=== PATIENT | female | born 1945 | race Caucasian/White ===

== ENCOUNTER 2016-08-16 17:29 | Inpatient (IN) ==
[2016-08-16] MEDS ORDERED: NON-FORMULARY MEDICATION 1 EACH EACH (Oxygen [Oxygen] 2 L) NS PRN (18:42)
[2016-08-16] MEDS ORDERED: Nystatin POWDER 30 GM BOTTLE TP PRN (18:42)
[2016-08-16] MEDS ORDERED: *HR* Dextrose 50 % in Water (Syg) 50 ML SYRINGE IVP PRN (18:51)
[2016-08-16] MEDS ORDERED: Dextrose Gel 15 GM PO PRN ×2 (18:51)
[2016-08-16] MEDS ORDERED: D5% in Water 1,000 ML IVC PRN (18:51)
[2016-08-16] MEDS ORDERED: CLOBETASOL PROPIONATE 0.05% TP SCH (21:00)
[2016-08-16] MEDS ORDERED: APPL TP SCH (21:00)
[2016-08-16] MEDS ORDERED: Bumetanide 1 MG TABLET PO SCH (21:00)
[2016-08-17] MEDS: *HR* HYDROcodone/Acet 5/325 mg TABLET PO PRN ×2 (01:12→21:22)
[2016-08-17 05:34] LABS: INR 1.5; Prothrombin Time 15.9 Seconds (9.4-12.1)
[2016-08-17 05:37] LABS: Activated Partial Thrombo Time 34.6 Seconds (26.0-36.0); Basophils % 0.4 %; Eosinophils # 0.3 K/mcL (0.0-0.6); Eosinophils % 5.2 %; Hematocrit 27.7 % (35.3-44.9); Immature Granulocytes % 0.4 % (0-4); Lymphocytes # 0.8 K/mcL (0.6-4.6); Lymphocytes % 15.1 %; Mean Corpuscular HGB Conc 32.5 g/dL (31.6-35.5); Mean Corpuscular Hemoglobin 29.7 pg (28.0-33.3); Mean Corpuscular Volume 91.4 fL (83.0-100.0); Mean Platelet Volume 11.1 fL (9.4-12.4); Monocytes # 0.7 K/mcL (0.0-1.3); Neutrophils # 3.7 K/mcL (1.6-8.9); Platelet Count 152 K/mcL (140-400); Red Blood Count 3.03 M/mcL (3.82-4.97); Red Cell Distribution Width 17.1 % (11.5-14.5); Segmented Neutrophils % 65.9 %
[2016-08-17 05:43] LABS: Calcium 8.8 mg/dL (8.6-10.8); Potassium 3.6 mEq/L (3.5-4.5)
[2016-08-17] MEDS: Insulin LISPRO 300 UNITS/3 ML VIAL SQ SCH ×3 (07:26→17:45)
[2016-08-17] MEDS: Aspirin Enteric Coated 81 MG Tablet PO SCH (11:35)
[2016-08-17] MEDS: Diltiazem CD (24hr) 180 MG CAPSULE PO SCH (11:35)
[2016-08-17] MEDS: Metoprolol XL (24 HR) Succ 50 MG TAB.ER.24H PO SCH (11:35)
[2016-08-17] MEDS: Bumetanide 1 MG TABLET PO SCH ×2 (11:35→17:45)
[2016-08-17] MEDS: TROSPIUM CHLORIDE 60 MG PO SCH (11:44)
--- NOTE | 2016-08-17 12:14 | Internal Med History&Physical ---
Date of Encounter: 08/17/16 Time of Encounter: 11:40 Assessment and Plan (1) Atrial fibrillation Current visit: No Status: Chronic We will continue aspirin for now. Qualifiers: Atrial fibrillation type: paroxysmal Qualified Code(s): I48.0 - Paroxysmal atrial fibrillation (2) Anemia Current visit: No Status: Chronic Anemia testing during her [facility] stay showed iron 36, transferrin saturation 11%, transferrin 233, ferritin 74, B12 184, and folate 10.6. I will start ferrous sulfate with vitamin C. Qualifiers: Anemia type: unspecified type Qualified Code(s): D64.9 - Anemia, unspecified (3) Diastolic CHF Current visit: No Status: Acute Her BNP peptide is significantly more elevated today compared to a few days ago. Will add isosorbide and Lanoxin. Continue Bumex, Toprol, and Cardizem Qualifiers: Congestive heart failure chronicity: chronic Qualified Code(s): I50.32 - Chronic diastolic (congestive) heart failure (4) CKD (chronic kidney disease) stage 4, GFR 15-29 ml/min Current visit: No Status: Chronic (5) CAD (coronary artery disease) Current visit: No Status: Chronic Will add isosorbide and continue Cardizem, Toprol and aspirin. Qualifiers: Coronary Disease-Associated Artery/Lesion type: [place] artery [place] vs. transplanted heart: [place] heart Associated angina: without angina Qualified Code(s): I25.10 - Atherosclerotic heart disease of [place] coronary artery without angina pectoris (6) Chronic kidney disease, stage IV (severe) Current visit: No Status: Acute As per global marketing operations manager. (7) Edema Current visit: Yes Status: Chronic Will order d-dimer to screen for DVT. Qualifiers: Edema type: unspecified Qualified Code(s): R60.9 - Edema, unspecified (8) Diabetes Current visit: No Status: Chronic Qualifiers: Diabetes mellitus type: type 2 Diabetes mellitus complication status: with kidney complications Diabetes mellitus complication detail: with chronic kidney disease Diabetes mellitus half-way insulin use: without half-way use Chronic kidney disease stage: stage 4 (severe) Qualified Code(s): E11.22 - Type 2 diabetes mellitus with diabetic chronic kidney disease; N18.4 - Chronic kidney disease, stage 4 (severe) Internal Medicine - H&P: HPI Chief complaint: Heart failure Admitted From: Hospital to Hospital Transfer Plans for Post Hospital Care: Home History of present illness: Ms. Vera is a 71 year old female who was hospitalized at [facility] August 12- for leg edema felt to be secondary to exacerbation of diastolic heart failure. She was stabilized but it was felt she would benefit from ongoing rehabilitation therapy prior to returning to independent living. She was admitted to [facility] swing bed. Cardiovascular history significant for hypertension and chronic atrial fibrillation. She was told she had an [place] January 2016 during a [place] hospitalization. She had a heart catheter on multiple occasions most recently 2015. She had 2 stents placed in 1995 but has been told the stents are occluded. She had 1 vessel CABG in 1991. She denies DVT or pulmonary embolus. She had Regadenoson stress test July 2015 which showed LVEF of 69% with no EKG or perfusion changes suggestive of ischemia or infarct. An echocardiogram December 2015 showed LVEF 55% with normal LV systolic function and indeterminate diastolic function due to chronic atrial fibrillation. She had severe TR, moderate MR, and elevated estimated RVSP of 65 mmHg. There was biatrial enlargement with left atrial size recorded at 5.1 cm. She took Coumadin until an episode of GI bleed in 2015. She has not been restarted on OAC. Past Med Surg Social Fam HX - Past Medical History Medical history: arthritis, atrial fibrillation, CHF, diabetes, GERD, hypertension, renal disease Psychiatric history: depression - Past Surgical History Surgical History: cholecystectomy, coronary bypass (CABG), other - Social History Smoking Status: Former smoker Packs per day: 1 Smokeless Tobacco Status: No Alcohol use: none Drug use: none - Family History Mother History Unknown: Yes Adopted: [place]: Meeta Age: 88 Family Member Ethnicity: Non- Living Status: Age at : 88 Cause of : CHF Hx Family Cardiac Disorders: Yes Hx Family Respiratory Disorders: No Hx Family Cancer: Yes Hx Family GI Disorders: No Hx Family Genitourinary Disorders: No Hx Family Endocrine Disorder: Yes Hx Family Musculoskeletal Disorders: Yes Hx Family Neuromuscular Disorders: No Hx Family Neurologic Disorders: No Hx Family HEENT Disorders: No Hx Family Autoimmune Disorders: No Hx Family Reproductive Disorders: Yes Hx Family Psychosocial Disorders: No Hx Family Medical Disorders: No Father Hx Family Cardiac Disorders: Yes Hx Family Cancer: Yes (stomach) Internal Medicine - H&P: Meds Cholecalciferol (D-3) [Vitamin D] 5,000 unit PO DAILY 09/26/15 [History] Diltiazem HCl [Diltiazem ER] 180 mg PO DAILY 09/26/15 [History] Hydrocodone/Acetaminophen [[place] 5-325 Tablet] 1 tab PO BID PRN 09/26/15 [ History] Metoprolol Succinate 100 mg PO DAILY 09/26/15 [History] Omeprazole [PriLOSEC] 40 mg PO DAILY 09/26/15 [History] Paroxetine HCl [Paroxetine] 40 mg PO DAILY 09/26/15 [History] Trospium Chloride [Trospium Chloride ER] 60 mg PO DAILY 09/26/15 [History] Clobetasol Propionate 0.05% [Temovate] 1 appl TP BID 01/19/16 [History] Clobetasol Propionate [Clobex] 1 appl TP 3XW 01/19/16 [History] Docusate [Colace] 100 mg PO DAILY PRN 01/19/16 [History] Nystatin POWDER [Nystop] 1 appl TP BID PRN 01/19/16 [History] Aspirin Enteric Coated [Aspirin EC] 81 mg PO DAILY 05/22/16 [History] Oxygen 2 l NS AD PRN 05/22/16 [History] Bumetanide [Bumex] 2 mg PO BID #60 tablet 05/24/16 [Rx] Potassium Chloride 10 meq PO DAILY #30 tab.er.prt 05/24/16 [Rx] HYDROcodone/Acet 5/325 mg [[place] 5-325 mg] 1 tab PO BID PRN #10 tablet 08/16/16 [Rx] Allergies NSAIDS (Non-Steroidal Anti-Inflamma Allergy (Verified 08/12/16 14:48) Hives Penicillins [PCN] Allergy (Verified 08/12/16 14:48) Hives Iodinated Contrast- Oral and IV Dye Adverse Reaction (Verified 08/12/16 14:48) See Comments All Systems PM: A 10-system review of systems was performed and is negative for pertinent findings except as documented above in the HPI. Review of systems: Gen.: She states her weight has been stable the past few months. She states she had gastric bypass surgery in 1999 with weight 336 at time of surgery. Her weight has fluctuated based on fluid retention recently. Cardiovascular: As per history of present illness Respiratory: She smoked from age [age] up to 1 pack per day. She has oxygen for prn use at home. She denies testing for TEZ. She denies COPD/emphysema. GI: She has had cholecystectomy. She has GERD but denies disorders of her liver or exocrine pancreas : She has CKD stage IV and follows with a [facility] global marketing operations manager Endocrine: She was diagnosed with borderline diabetes in 1984 and DM 2 shortly afterward. She denies thyroid disease or hyperlipidemia Hematology/oncology: She denies blood disorders cancers or anemia Psychiatric: She has anxiety and depression but denies other mental health issues [place] skeletal: She has DJD and gout. She states she has had 2 back surgeries with riley placement done at her last surgery. - Constitutional Vitals: Temp Pulse Resp BP Pulse Ox 98.3 F 68 18 142/71 96 08/17/16 06:45 08/17/16 10:15 08/17/16 10:15 08/17/16 10:15 08/17/16 10:15 Exam: Gen.: She is a well-developed overweight female sitting on the side of at who appears in no severe distress. HEENT: Head is atraumatic and normocephalic. Eyes: EOMI. There is no scleral icterus. Mouth: Mucosa is moist. Neck: Supple and nontender. There is no thyromegaly or adenopathy noted. Heart: Irregularly irregular. Lungs: No wheezes or crackles heard. Abdomen: She has a large pannus. It is nontender to palpation. Exam is limited because she is in the seated position. Extremities: She has 1-2+ pitting edema as well as woody edema of her legs. The right leg lower appears larger than the left. Dorsalis pedis and posterior tibial pulses are not palpated. Neurologic: Mental status: She is talkative and a good historian. Cranial nerves: Smile is symmetric. Forehead wrinkles bilaterally. Tongue protrudes midline. EOMI. Motor: There is no pronator drift. Cerebellar: Finger to nose is intact bilaterally. Skin: Warm and dry Internal Med - H&P Results - Labs CBC & Chem 7: 08/17/16 05:16 08/17/16 05:16 Labs: Short CBC 08/17/16 Range/Units 05:16 WBC 5.6 (4.3-11.1) K/mcL Hgb 9.0 L (11.5-15.4) g/dL Hct 27.7 L (35.3-44.9) % Plt Count 152 (140-400) K/mcL Neutrophils # 3.7 (1.6-8.9) K/mcL BMP 08/17/16 05:16 Sodium 142 Potassium 3.6 Chloride 103 Carbon Dioxide 25 BUN 40 H Creatinine 1.97 H Glucose 111 H Calcium 8.8
[2016-08-17] MEDS ORDERED: *HR* Enoxaparin 30 MG/0.3 ML SYRINGE SQ SCH (14:06)
[2016-08-17] MEDS: *HR* Enoxaparin 100 MG/ML SYRINGE SQ SCH (14:25)
[2016-08-17] MEDS: *HR* Digoxin 0.125 MG TABLET PO SCH (14:25)
[2016-08-17] MEDS: Isosorbide MONOnitrate (24 HR) 30 MG TAB.ER.24H PO SCH (14:25)
[2016-08-18] MEDS: *HR* Enoxaparin 100 MG/ML SYRINGE SQ SCH (06:39)
[2016-08-18] MEDS: Ascorbic Acid 500 MG TABLET PO SCH (06:39)
[2016-08-18] MEDS: Insulin LISPRO 300 UNITS/3 ML VIAL SQ SCH ×3 (07:27→16:38)
[2016-08-18] MEDS: Bumetanide 1 MG TABLET PO SCH ×2 (09:36→16:45)
[2016-08-18] MEDS: Metoprolol XL (24 HR) Succ 50 MG TAB.ER.24H PO SCH (09:36)
[2016-08-18] MEDS: Isosorbide MONOnitrate (24 HR) 30 MG TAB.ER.24H PO SCH (09:37)
[2016-08-18] MEDS: Aspirin Enteric Coated 81 MG Tablet PO SCH (09:37)
[2016-08-18] MEDS: Diltiazem CD (24hr) 180 MG CAPSULE PO SCH (09:37)
[2016-08-18] MEDS: TROSPIUM CHLORIDE 60 MG PO SCH (09:37)
[2016-08-18] MEDS: CLOBETASOL PROPIONATE 15 GM TUBE TP SCH (09:41)
--- NOTE | 2016-08-18 17:42 | Venous Imaging Report ---
LE Venous Duplex Patient Name:Kelly Vera Order Number:[id number] Procedure Date:08/17/2016 Date:6Age:71 yrs Gender:Female Location:[facility] Room #: 55 Consumer Education Specialist:Isamar Gray RVT, VIOLETA Referring MD:Pravin Watters MD ccna:None Reading MD:Raghav Sanders MD Primary Indications:edema Secondary Indications: Risk Factors Yes/No Hx of DVT No Impressions: Normal bilateral lower extremity deep and superficial venous exam. Recommendations: Test completed on 08/17/2016 at 5:46:30 pm. Critical findings reported to Kathe NOONAN by phone at 5:46:57 pm on 08/17/2016 by Isamar Gray RVT, RDCS. Findings Venous Duplex Results: Right: Venous imaging of the lower extremity reveals full patency and normal vessel compressibility of the right distal iliac, right common femoral, right superficial femoral, right popliteal, right posterior tibial, right peroneal, right saphenofemoral junction, right great saphenous and right lesser saphenous. Doppler signals in the evaluated veins were normal. The right posterior tibial and right peroneal veins were not well visualized. Left: Venous imaging of the lower extremity reveals full patency and normal vessel compressibility of the left distal iliac, left common femoral, left superficial femoral, left popliteal, left posterior tibial, left peroneal, left saphenofemoral junction, left great saphenous and left lesser saphenous. Doppler signals in the evaluated veins were normal. The left posterior tibial and left peroneal veins were not well visualized. Lower Extremity Venous Duplex Side Vein Compress Spontaneous Flow Augment Diameter (cm) Depth (cm) Right Distal Iliac Normal Yes Phasic Yes Right Common Femoral Normal Yes Phasic Yes Right Superficial Femoral Normal Yes Phasic Yes Right Popliteal Normal Yes Phasic Yes Right Posterior Tibial Normal Yes Phasic Yes Right Peroneal Normal Yes Phasic Yes Right Saphenofemoral [place] Normal Yes Phasic Yes Right Great Saphenous Normal Yes Phasic Yes Right Lesser Saphenous Normal Yes Phasic Yes Left Distal Iliac Normal Yes Phasic Yes Left Common Femoral Normal Yes Phasic Yes Left Superficial Femoral Normal Yes Phasic Yes Left Popliteal Normal Yes Phasic Yes Left Posterior Tibial Normal Yes Phasic Yes Left Peroneal Normal Yes Phasic Yes Left Saphenofemoral [place] Normal Yes Phasic Yes Left Great Saphenous Normal Yes Phasic Yes Left Lesser Saphenous Normal Yes Phasic Yes Updated by Raghav Sanders MD on 08/18/2016 5:36:56 PM electronically signed on 08/18/2016 5:37:12 PM with status of Final
[2016-08-18] MEDS: *HR* HYDROcodone/Acet 5/325 mg TABLET PO PRN (20:33)
[2016-08-19] MEDS: Ascorbic Acid 500 MG TABLET PO SCH (05:49)
[2016-08-19] MEDS: *HR* Enoxaparin 100 MG/ML SYRINGE SQ SCH (05:51)
[2016-08-19] MEDS: Insulin LISPRO 300 UNITS/3 ML VIAL SQ SCH ×3 (08:01→16:21)
[2016-08-19] MEDS: Bumetanide 1 MG TABLET PO SCH ×2 (08:15→16:29)
[2016-08-19] MEDS: Isosorbide MONOnitrate (24 HR) 30 MG TAB.ER.24H PO SCH (08:16)
[2016-08-19] MEDS: Aspirin Enteric Coated 81 MG Tablet PO SCH (08:16)
[2016-08-19] MEDS: Diltiazem CD (24hr) 180 MG CAPSULE PO SCH (08:16)
[2016-08-19] MEDS: TROSPIUM CHLORIDE 60 MG PO SCH (08:17)
[2016-08-19] MEDS: Metoprolol XL (24 HR) Succ 50 MG TAB.ER.24H PO SCH (08:17)
[2016-08-19] MEDS: *HR* Digoxin 0.125 MG TABLET PO SCH (08:19)
[2016-08-20] MEDS: Ascorbic Acid 500 MG TABLET PO SCH (06:52)
[2016-08-20] MEDS: *HR* Enoxaparin 100 MG/ML SYRINGE SQ SCH (06:52)
[2016-08-20] MEDS: Insulin LISPRO 300 UNITS/3 ML VIAL SQ SCH ×3 (08:29→17:00)
[2016-08-20] MEDS: Bumetanide 1 MG TABLET PO SCH ×2 (09:25→17:05)
[2016-08-20] MEDS: Metoprolol XL (24 HR) Succ 50 MG TAB.ER.24H PO SCH (09:25)
[2016-08-20] MEDS: Aspirin Enteric Coated 81 MG Tablet PO SCH (09:25)
[2016-08-20] MEDS: Isosorbide MONOnitrate (24 HR) 30 MG TAB.ER.24H PO SCH (09:25)
[2016-08-20] MEDS: Diltiazem CD (24hr) 180 MG CAPSULE PO SCH (09:25)
[2016-08-20] MEDS: TROSPIUM CHLORIDE 60 MG PO SCH (09:26)
[2016-08-20] MEDS: *HR* HYDROcodone/Acet 5/325 mg TABLET PO PRN (22:20)
[2016-08-21] MEDS: *HR* Enoxaparin 100 MG/ML SYRINGE SQ SCH (06:15)
[2016-08-21] MEDS: Ascorbic Acid 500 MG TABLET PO SCH (06:16)
[2016-08-21] MEDS: Insulin LISPRO 300 UNITS/3 ML VIAL SQ SCH ×3 (09:49→18:16)
--- NOTE | 2016-08-21 10:15 | Internal Med Progress Note ---
Date of Encounter: 08/21/16 Time of Encounter: 10:05 - Assessment and plan (1) Atrial fibrillation Current Visit: No Status: Chronic Assessment and plan: August 21. Continue aspirin Qualifiers: Atrial fibrillation type: paroxysmal Qualified Code(s): I48.0 - Paroxysmal atrial fibrillation (2) Anemia Current Visit: No Status: Chronic Assessment and plan: August 21. Continue ferrous sulfate with vitamin C. Will recheck labs in a.m. Qualifiers: Anemia type: unspecified type Qualified Code(s): D64.9 - Anemia, unspecified (3) Diastolic CHF Current Visit: No Status: Acute Assessment and plan: August 21. Recheck labs in a.m. Qualifiers: Congestive heart failure chronicity: chronic Qualified Code(s): I50.32 - Chronic diastolic (congestive) heart failure (4) CKD (chronic kidney disease) stage 4, GFR 15-29 ml/min Current Visit: No Status: Chronic Assessment and plan: August 21. Check renal indices in a.m. (5) CAD (coronary artery disease) Current Visit: No Status: Chronic Assessment and plan: August 21. Continue present regimen Qualifiers: Coronary Disease-Associated Artery/Lesion type: [place] artery [place] vs. transplanted heart: [place] heart Associated angina: without angina Qualified Code(s): I25.10 - Atherosclerotic heart disease of [place] coronary artery without angina pectoris (6) Edema Current Visit: Yes Status: Chronic Assessment and plan: August 21. D-dimer was elevated but venous Doppler showed no evidence of DVT. Continue present regimen. Qualifiers: Edema type: unspecified Qualified Code(s): R60.9 - Edema, unspecified (7) Diabetes Current Visit: No Status: Chronic Assessment and plan: August 21. Hemoglobin A1c was 6.3% on 08/13/2016. We will continue present regimen. Qualifiers: Diabetes mellitus type: type 2 Diabetes mellitus complication status: with kidney complications Diabetes mellitus complication detail: with chronic kidney disease Diabetes mellitus care home insulin use: without long term care phlebotomist use Chronic kidney disease stage: stage 4 (severe) Qualified Code(s): E11.22 - Type 2 diabetes mellitus with diabetic chronic kidney disease; N18.4 - Chronic kidney disease, stage 4 (severe) (8) Hyperuricemia Current Visit: Yes Status: Acute Assessment and plan: August 21. Uric acid was 8.4 on 04/20/2016. We will recheck in a.m. - Subjective Interval history: August 21. She has no new complaints. She feels her leg edema has improved and her dyspnea has lessened. - Constitutional Vitals: Temp Pulse Resp BP Pulse Ox 98.7 F 77 18 117/65 97 08/21/16 06:51 08/21/16 06:51 08/21/16 06:51 08/21/16 06:51 08/20/16 22:00 Exam: She is resting comfortably in bed and appears in no acute distress. Her affect is bright and cheerful. I reviewed her medications and lab results. Internal Medicine: Result - Labs CBC & Chem 7: 08/17/16 05:16 08/17/16 05:16 - ABG Interpretation ABG results: PT/INR, D-dimer PT 15.9 Seconds (9.4-12.1) H 08/17/16 05:16 D-Dimer 3378 ng/mLFEU (0-500) H 08/17/16 12:35 Consult Discharge Plan - Plan Referrals: NO,PCP [Primary Care Provider] - 1 week
[2016-08-21] MEDS: Isosorbide MONOnitrate (24 HR) 30 MG TAB.ER.24H PO SCH (10:29)
[2016-08-21] MEDS: Aspirin Enteric Coated 81 MG Tablet PO SCH (10:29)
[2016-08-21] MEDS: TROSPIUM CHLORIDE 60 MG PO SCH (10:29)
[2016-08-21] MEDS: Bumetanide 1 MG TABLET PO SCH ×2 (10:29→18:35)
[2016-08-21] MEDS: Metoprolol XL (24 HR) Succ 50 MG TAB.ER.24H PO SCH (10:29)
[2016-08-21] MEDS: Diltiazem CD (24hr) 180 MG CAPSULE PO SCH (10:29)
[2016-08-21] MEDS: *HR* Digoxin 0.125 MG TABLET PO SCH (10:29)
[2016-08-21] MEDS: CLOBETASOL PROPIONATE 15 GM TUBE TP SCH ×2 (10:53→18:35)
[2016-08-21] MEDS: *HR* HYDROcodone/Acet 5/325 mg TABLET PO PRN (22:11)
[2016-08-22 05:57] LABS: Basophils % 0.5 %; Eosinophils # 0.4 K/mcL (0.0-0.6); Eosinophils % 6.8 %; Hematocrit 27.1 % (35.3-44.9); Hemoglobin 8.6 g/dL (11.5-15.4); Immature Granulocytes % 0.5 % (0-4); Lymphocytes # 0.8 K/mcL (0.6-4.6); Lymphocytes % 13.4 %; Mean Corpuscular HGB Conc 31.7 g/dL (31.6-35.5); Mean Corpuscular Hemoglobin 29.5 pg (28.0-33.3); Mean Corpuscular Volume 92.8 fL (83.0-100.0); Mean Platelet Volume 11.8 fL (9.4-12.4); Monocytes # 0.8 K/mcL (0.0-1.3); Monocytes % 13.4 %; Neutrophils # 3.9 K/mcL (1.6-8.9); Platelet Count 136 K/mcL (140-400); Red Blood Count 2.92 M/mcL (3.82-4.97); Red Cell Distribution Width 17.4 % (11.5-14.5); Segmented Neutrophils % 65.4 %
[2016-08-22 06:18] LABS: Albumin/Globulin Ratio 0.9 (1.1-2.2); Bilirubin,Total 1.4 mg/dL (0.2-1.2); Calcium 8.8 mg/dL (8.6-10.8); Globulin 3.3 g/dL (2.4-3.5); Potassium 3.7 mEq/L (3.5-4.5); Total Protein 6.3 g/dL (6.0-8.3); Uric Acid 9.7 mg/dL (2.6-6.0)
[2016-08-22] MEDS: *HR* Enoxaparin 100 MG/ML SYRINGE SQ SCH (06:36)
[2016-08-22] MEDS: Ascorbic Acid 500 MG TABLET PO SCH (06:36)
[2016-08-22] MEDS: Insulin LISPRO 300 UNITS/3 ML VIAL SQ SCH ×3 (09:12→16:27)
[2016-08-22] MEDS: Diltiazem CD (24hr) 180 MG CAPSULE PO SCH (09:21)
[2016-08-22] MEDS: TROSPIUM CHLORIDE 60 MG PO SCH (09:22)
[2016-08-22] MEDS: Bumetanide 1 MG TABLET PO SCH ×2 (09:22→18:37)
[2016-08-22] MEDS: Metoprolol XL (24 HR) Succ 50 MG TAB.ER.24H PO SCH (09:22)
[2016-08-22] MEDS: Aspirin Enteric Coated 81 MG Tablet PO SCH (09:22)
[2016-08-22] MEDS: Isosorbide MONOnitrate (24 HR) 30 MG TAB.ER.24H PO SCH (09:22)
[2016-08-23] MEDS: *HR* HYDROcodone/Acet 5/325 mg TABLET PO PRN (00:34)
[2016-08-23] MEDS: Ascorbic Acid 500 MG TABLET PO SCH (05:55)
[2016-08-23 06:33] VITALS: BP 130/75
[2016-08-23] MEDS: Insulin LISPRO 300 UNITS/3 ML VIAL SQ SCH (08:59)
[2016-08-23] MEDS: TROSPIUM CHLORIDE 60 MG PO SCH (08:59)
[2016-08-23] MEDS: Metoprolol XL (24 HR) Succ 50 MG TAB.ER.24H PO SCH (09:49)
[2016-08-23] MEDS: Bumetanide 1 MG TABLET PO SCH (09:49)
[2016-08-23] MEDS: *HR* Digoxin 0.125 MG TABLET PO SCH (09:50)
[2016-08-23] MEDS: Diltiazem CD (24hr) 180 MG CAPSULE PO SCH (09:50)
[2016-08-23] MEDS: Isosorbide MONOnitrate (24 HR) 30 MG TAB.ER.24H PO SCH (09:50)
[2016-08-23] MEDS: Aspirin Enteric Coated 81 MG Tablet PO SCH (09:50)
--- NOTE | 2016-08-23 10:13 | Discharge Summary ---
Date of Encounter: 08/23/16 Time of Encounter: 10:00 - Discharge Diagnosis (1) Diastolic CHF Priority: Primary Status: Chronic Qualifiers: Congestive heart failure chronicity: chronic Qualified Code(s): I50.32 - Chronic diastolic (congestive) heart failure (2) Atrial fibrillation Priority: Secondary Status: Chronic Qualifiers: Atrial fibrillation type: paroxysmal Qualified Code(s): I48.0 - Paroxysmal atrial fibrillation (3) Anemia Priority: Secondary Status: Chronic Qualifiers: Anemia type: unspecified type Qualified Code(s): D64.9 - Anemia, unspecified (4) CKD (chronic kidney disease) stage 4, GFR 15-29 ml/min Priority: Secondary Status: Chronic (5) CAD (coronary artery disease) Priority: Secondary Status: Chronic Qualifiers: Coronary Disease-Associated Artery/Lesion type: [place] artery [place] vs. transplanted heart: [place] heart Associated angina: without angina Qualified Code(s): I25.10 - Atherosclerotic heart disease of [place] coronary artery without angina pectoris (6) Edema Priority: Secondary Status: Chronic Qualifiers: Edema type: unspecified Qualified Code(s): R60.9 - Edema, unspecified (7) Diabetes Priority: Secondary Status: Chronic Qualifiers: Diabetes mellitus type: type 2 Diabetes mellitus complication status: with kidney complications Diabetes mellitus complication detail: with chronic kidney disease Diabetes mellitus snf insulin use: without dedicated intermodal truck driver use Chronic kidney disease stage: stage 4 (severe) Qualified Code(s): E11.22 - Type 2 diabetes mellitus with diabetic chronic kidney disease; N18.4 - Chronic kidney disease, stage 4 (severe) (8) Hyperuricemia Priority: Secondary Status: Chronic - Discharge Medications Prescriptions: Allopurinol [Zyloprim 100 MG] 200 mg PO DAILY #60 tablet Ascorbic Acid [Vitamin C] 500 mg PO DAILY@0630 #30 tablet Digoxin [Lanoxin] 0.125 mg PO QOD #15 tablet Ferrous Sulfate 325 mg PO DAILY@0630 #30 tablet Isosorbide MONOnitrate (24 HR) [Imdur] 30 mg PO DAILY #30 tab.er.24h Home Medications: Cholecalciferol (D-3) [Vitamin D] 5,000 unit PO DAILY 09/26/15 [History] Diltiazem HCl [Diltiazem ER] 180 mg PO DAILY 09/26/15 [History] Hydrocodone/Acetaminophen [[place] 5-325 Tablet] 1 tab PO BID PRN 09/26/15 [ History] Metoprolol Succinate 100 mg PO DAILY 09/26/15 [History] Omeprazole [PriLOSEC] 40 mg PO DAILY 09/26/15 [History] Paroxetine HCl [Paroxetine] 40 mg PO DAILY 09/26/15 [History] Trospium Chloride [Trospium Chloride ER] 60 mg PO DAILY 09/26/15 [History] Clobetasol Propionate 0.05% [Temovate] 1 appl TP BID 01/19/16 [History] Clobetasol Propionate [Clobex] 1 appl TP 3XW 01/19/16 [History] Docusate [Colace] 100 mg PO DAILY PRN 01/19/16 [History] Nystatin POWDER [Nystop] 1 appl TP BID PRN 01/19/16 [History] Aspirin Enteric Coated [Aspirin EC] 81 mg PO DAILY 05/22/16 [History] Oxygen 2 l NS AD PRN 05/22/16 [History] Bumetanide [Bumex] 2 mg PO BID #60 tablet 05/24/16 [Rx] Potassium Chloride 10 meq PO DAILY #30 tab.er.prt 05/24/16 [Rx] HYDROcodone/Acet 5/325 mg [[place] 5-325 mg] 1 tab PO BID PRN #10 tablet 08/16/16 [Rx] Allopurinol [Zyloprim 100 MG] 200 mg PO DAILY #60 tablet 08/23/16 [Rx] Ascorbic Acid [Vitamin C] 500 mg PO DAILY@0630 #30 tablet 08/23/16 [Rx] Digoxin [Lanoxin] 0.125 mg PO QOD #15 tablet 08/23/16 [Rx] Ferrous Sulfate 325 mg PO DAILY@0630 #30 tablet 08/23/16 [Rx] Isosorbide MONOnitrate (24 HR) [Imdur] 30 mg PO DAILY #30 tab.er.24h 08/23/16 [ Rx] Allergies/Adverse Reactions: Allergies NSAIDS (Non-Steroidal Anti-Inflamma Allergy (Verified 08/12/16 14:48) Hives Penicillins [PCN] Allergy (Verified 08/12/16 14:48) Hives Iodinated Contrast- Oral and IV Dye Adverse Reaction (Verified 08/12/16 14:48) See Comments Date of admission: 08/16/16 20:09 Primary care physician: Yue Boswell CNP Consults: 08/16/16 18:31 Consult to Occupational Therapy [CONS] Routine Comment: to eval, develop, and implement plan of care Reason for Consult: to eval, develop, and implement plan of care Consult to Physical Therapy [CONS] Routine Comment: to eval, develop, and implement plan of care Reason for Consult: to eval, develop, and implement plan of care Consult to Access Analyst [CONS] Routine Reason for SW Consult: d/c planning - Patient Status Disposition: Home, Self-Care Overall status at discharge: patient is progressing back to baseline - Discharge Instructions Follow Up With: Yue Boswell CNP [Advanced Practice Nurse] - 1 week - Diet and Activity Activity: as per physical therapy Diet: diabetic diet, low salt diet Hospital course: Ms. Vera is a 71 year old female who was hospitalized at [facility] August 12- for leg edema felt to be secondary to exacerbation of diastolic heart failure. She was stabilized but it was felt she would benefit from ongoing rehabilitation therapy prior to returning to independent living. She was admitted to [facility] swing bed. Initial orders were written by the discharging physicians at [facility]. I saw her on August 17 and performed a swing bed history and physical. She was started on Lanoxin and isosorbide. The Bumex, Toprol, and Cardizem were continued. She had clinical improvement and weight had decreased to 98.118 kg on the day prior to discharge. Her dyspnea significantly improved. She will continue this medication regimen at discharge. Uric acid level returned elevated at 9.7. She will be started on allopurinol. Anemia testing done during her [facility] stay was reviewed. She was started on ferrous sulfate with vitamin C and these will be continued at discharge. Her azotemia improved with creatinine 1.61 the day prior to discharge and estimated GFR 32. On August 23 arrangements were complete for her to be discharged home. She will follow with her PCP Yue Boswell CNP within 1 week. - Time Spent with Patient Total time spent providing and/or coordinating discharge services: - Constitutional Vitals: Temp Pulse Resp BP Pulse Ox 97.7 F 80 16 130/75 98 08/23/16 06:33 08/23/16 06:33 08/23/16 06:33 08/23/16 06:33 08/23/16 06:33
== END 2016-08-23 11:35 | disposition home or self-care (01) | DRG 945 ==
LOC: INPPIK 20:09
PROVIDERS: ADMIT Internal Medicine; ATTEND Internal Medicine